=== PATIENT | female | born 1995 | race Caucasian/White ===

== ENCOUNTER 2017-01-03 03:46 | Inpatient (IN) | payer BC, MEDICAID ==
[2017-01-03] MEDS ORDERED: Lactated Ringers 1,000 ML IV SCH (04:00)
[2017-01-03] MEDS ORDERED: Ropivacaine 100 ML ONE (04:55)
[2017-01-03] MEDS ORDERED: Ondansetron 4 MG Tab.DIS PO PRN (05:14)
[2017-01-03] MEDS ORDERED: Sodium Chloride 0.9% 10 ML Syringe FLUSH PRN (05:14)
[2017-01-03] MEDS ORDERED: Acetaminophen 325 MG Tab PO PRN (05:14)
[2017-01-03] MEDS ORDERED: ePHEDrine 50 MG/ML SDV ONE (05:16)
--- NOTE | 2017-01-03 05:24 | PCM.LDHP ---
L&D History of Present Illness - General Date of Service: 01/03/17 (labor) Admit Problem/Dx: Patient Status Order with Admit Dx/Problem 01/03/17 05:14 Patient Status [ADT] Routine Admission Diagnosis/Problem Admission Diagnosis/Problem Source of Information: Patient History Limitations: Reports: No Limitations - History of Present Illness Introduction:: This 21 year old G1 at 40 2/7 presented in active labor. /. Requested epidural for pain. Adequate care. No problems. Labs: ABO A pos, HIV neg, Rubella immune, GBS neg. Timing/Duration: Reports: minutes: (3) Location, : Reports: Abdomen Quality: Reports: Sharp Severity: Moderate Improves with: Reports: None Worsens with: Reports: None - Related Data Allergies/Adverse Reactions: Allergies Allergy/AdvReac Type Severity Reaction Status Date / Time No Known Allergies Allergy Verified 02/16/16 22:12 Home Medications: Home Meds FLUoxetine [PROzac] 10 mg PO DAILY 12/28/13 [History] Past Medical History - Past Health History Medical/Surgical History: Denies Medical/Surgical History GOLD ASSAYER History: Reports: : 1 Para: 0 LMP (Approximate): (TONYA 01/01/17) Psychiatric History: Reports: Anxiety, Depression Social & Family History - Family History Family Medical History: Noncontributory - Tobacco Use Smoking Status *Q: Former Smoker Years of Tobacco use: 2 Packs/Tins Daily: 0.3 Used Tobacco, but Quit: Yes Month Tobacco Last Used: jun 2016 Second Hand Smoke Exposure: Yes - Caffeine Use Caffeine Use: Reports: None - Alcohol Use Days Per Week of Alcohol Use: 0 - Recreational Drug Use Recreational Drug Use: Yes Drug Use in Last 12 Months: Yes Recreational Drug Type: Reports: Marijuana/Hashish H&P Review of Systems - Review of Systems: Review Of Systems: See Below General: Reports: No Symptoms HEENT: Reports: No Symptoms Pulmonary: Reports: No Symptoms Cardiovascular: Reports: No Symptoms Gastrointestinal: Reports: No Symptoms Genitourinary: Reports: No Symptoms Musculoskeletal: Reports: No Symptoms Skin: Reports: No Symptoms Psychiatric: Reports: No Symptoms Neurological: Reports: No Symptoms Hematologic/Lymphatic: Reports: No Symptoms Immunologic: Reports: No Symptoms L&D Exam - Exam Exam: See Below - Vital Signs Vital Signs: Last Vital Signs Temp 97.8 F 01/03/17 05:16 Pulse 75 01/03/17 05:16 Resp 18 01/03/17 05:16 BP 126/79 01/03/17 05:16 Pulse Ox 98 01/03/17 03:46 Weight: 166 lb - OB Specific Contraction Duration (sec): 40-60 Contraction Frequency (min): 2 Contraction Intensity: Mild to Moderate Movement: Active Heart Tones: Present Heart Rate (FHR) Variability: Moderate (6-25 bmp) Presentation: Vertex Estimated Weight: 7-8 pounds - Richard Score Richard Score Cervix Position: Midposition Richard Score Consistency: Soft Richard Score Effacement: >80% Richard Score Dilation: 3-4 cm Richard Score Infant's Station: -1 ,0 Richard Score Total: 10 - Exam General: Alert, Oriented HEENT: PERRLA, Conjunctiva Clear, EACs Clear, EOMI, Hearing Intact, Mucosa Moist & [place], Nares Patent, Normal Nasal Septum, Posterior Pharynx Clear, Pupils Equal, Pupils Reactive Neck: Supple, Trachea Midline Lungs: Clear to Auscultation, Normal Respiratory Effort Cardiovascular: Regular Rate, Regular Rhythm Abdomen: Normal Bowel Sounds, Soft Rectal Exam: Normal Exam Genitourinary: Normal external exam, Enlarged uterus Back Exam: Normal Inspection, Full Range of Motion Extremities: Normal Inspection Skin: Warm, Dry, Intact Neurological: Cranial Nerves Intact, Reflexes Equal Bilateral Psychiatric: Alert, Normal Affect, Normal Mood - Patient Data Lab Results Last 24 hrs: Laboratory Results - last 24 hr 01/03/17 Range/Units 04:00 WBC 12.5 H (4.5-11.0) K/uL RBC 4.26 (3.30-5.50) M/uL Hgb 13.6 (12.0-15.0) g/dL Hct 38.5 (36.0-48.0) % MCV 90 (80-98) fL MCH 32 H (27-31) pg MCHC 35 (32-36) % Plt Count 260 (150-400) K/uL Neut % (Auto) 61 (36-66) % Lymph % (Auto) 29 (24-44) % [place] % (Auto) 9 H (2-6) % Eos % (Auto) 1 L (2-4) % Baso % (Auto) 1 (0-1) % Result Diagrams: 01/03/17 04:00 - Problem List (1) SNOMED Code(s): 23457611 ICD Code: Z34.90 - ENCNTR FOR SUPRVSN OF NORMAL , UNSP, UNSP TRIMESTER Status: Acute Current Visit: Yes Qualifiers: Weeks of gestation: 40 weeks Qualified Code(s): Z3A.40 - 40 weeks gestation of (2) Active labor at term SNOMED Code(s): 16717958 ICD Code: [id number] - Status: Acute Current Visit: Yes Problem List Initiated/Reviewed/Updated: Yes Orders Last 24hrs: Active Orders 24 hr Category Date Time Status Patient Status [ADT] Routine ADT 01/03/17 05:14 Ordered Antiembolic Devices [RC] .Routine Care 01/03/17 05:16 Ordered Communication Order [RC] ASDIRECTED Care 01/03/17 05:14 Ordered Heart Tones [RC] PER UNIT ROUTINE Care 01/03/17 05:14 Ordered Local Anesthetic Infusion Pump [RC] ASDIRECTED Care 01/03/17 03:54 Active May Shower [RC] ASDIRECTED Care 01/03/17 05:14 Ordered Notify Provider Vital Signs [RC] PRN Care 01/03/17 05:14 Ordered Notify Provider [RC] PRN Care 01/03/17 05:14 Ordered OB Check [OM.PC] Click to Edit Care 01/03/17 03:52 Ordered PCEA Epidural [RC] ASDIRECTED Care 01/03/17 03:54 Active Up ad Laura [RC] ASDIRECTED Care 01/03/17 05:14 Ordered VTE/DVT Education [RC] Click to Edit Care 01/03/17 05:16 Ordered Vital Signs [RC] PER UNIT ROUTINE Care 01/03/17 05:14 Ordered Clear Liquid Diet [DIET] Diet 01/03/17 Breakfast Ordered DRUG SCREEN, URINE [URCHEM] Routine Lab 01/03/17 05:10 Ordered UA W/MICROSCOPIC [URIN] Routine Lab 01/03/17 05:10 Ordered Acetaminophen [Tylenol] Med 01/03/17 05:14 Ordered 650 mg PO Q4H PRN Lactated Ringers [Ringers, Lactated] 1,000 ml Med 01/03/17 04:00 Active IV BOLUS Ondansetron [Zofran ODT] Med 01/03/17 05:14 Ordered 4 mg PO Q4H PRN Oxytocin/Normal Saline [Pitocin in NS 20 Units/1,000 ML Med 01/03/17 05:30 Ordered ] 1,000 ml IV TITRATE Sodium Chloride 0.9% [Saline Flush] Med 01/03/17 05:14 Ordered 10 ml FLUSH ASDIRECTED PRN DVT/VTE Prophylaxis Reflex [OM.PC] Routine Oth 01/03/17 05:14 Ordered Epidural Catheter Management [OM.PC] Routine Oth 01/03/17 03:54 Ordered Saline Lock Insert [OM.PC] Routine Oth 01/03/17 05:14 Ordered Resuscitation Status Routine Resus Stat 01/03/17 05:14 Ordered Medication Orders Acetaminophen (Tylenol) 650 mg PO Q4H PRN PRN Reason: Pain (Mild 1-3) and fever Lactated Ringer's (Ringers, Lactated) 1,000 mls @ 999 mls/hr IV BOLUS TOYA Oxytocin/Sodium Chloride (Pitocin In Ns 20 Units/1,000 Ml) 1,000 mls @ 6 mls/ hr IV TITRATE TOYA; 2 MUNITS/MIN PRN Reason: Protocol Ondansetron HCl (Zofran Odt) 4 mg PO Q4H PRN PRN Reason: Nausea/Vomiting Sodium Chloride (Saline Flush) 10 ml FLUSH ASDIRECTED PRN PRN Reason: Keep Vein Open Assessment/Plan Comment:: 01/03/17 40 2/7 G1, active labor epidural in palce and comfortable Planning for vaginal delivery
--- NOTE | 2017-01-03 07:03 | PCM.PNLD ---
Labor Progress Note - VS & Meds Vital Signs: Last Vital Signs Temp 97.8 F 01/03/17 05:16 Pulse 73 01/03/17 06:36 Resp 18 01/03/17 05:50 BP 115/75 01/03/17 05:50 Pulse Ox 95 01/03/17 05:50 Active Medications: Current Medications Acetaminophen (Tylenol) 650 mg PO Q4H PRN PRN Reason: Pain (Mild 1-3) and fever Lactated Ringer's (Ringers, Lactated) 1,000 mls @ 999 mls/hr IV BOLUS TOYA Oxytocin/Sodium Chloride (Pitocin In Ns 20 Units/1,000 Ml) 20 unit in 1,000 mls @ 6 mls/hr IV TITRATE TOYA; 2 MUNITS/MIN PRN Reason: Protocol Ondansetron HCl (Zofran Odt) 4 mg PO Q4H PRN PRN Reason: Nausea/Vomiting Sodium Chloride (Saline Flush) 10 ml FLUSH ASDIRECTED PRN PRN Reason: Keep Vein Open Discontinued Medications Ephedrine Sulfate (Ephedrine Sulfate) Confirm Administered Dose 50 mg .ROUTE .STK-MED ONE Stop: 01/03/17 05:17 Ropivacaine (Naropin 0.2%) Confirm Administered Dose 100 mls @ as directed .ROUTE .STK-MED ONE Stop: 01/03/17 04:56 - Uterine Contractions Uterine Monitoring Mode: External [place] Contraction Frequency (min): 1.5-2 Contraction Duration (sec): 60 Contraction Intensity: Mild to Moderate Uterine Resting Tone: Soft - Monitoring Monitor Mode: Doppler/Auscultation Heart Rate (FHR) Baseline: 145 Heart Rate (FHR) Variability: Moderate (6-25 bmp) Accelerations: Present, 15x15 Decelerations: None Strip Review: Category I - Vaginal Exam Dilation (cm): 6 Effacement (Percent): 100 Station: 0 Cervical Position: Anterior Sterile Vaginal Exam Performed By: Nohemy Gonzalez Vaginal Exam Comment: AROM large amount clear fluids - Labor Progress (Free Text) Labor Progress: epidural working well bloody show progress and now ruptured planning vaginal delivery, will let her labor down
[2017-01-03] MEDS ORDERED: Ropivacaine 100 ML EPIDUR SCH (08:21)
[2017-01-03] MEDS ORDERED: ePHEDrine 50 MG/ML SDV IVPUSH PRN (08:21)
[2017-01-03] MEDS ORDERED: Naloxone 0.4 MG/ML SDV IVPUSH PRN (08:21)
[2017-01-03] MEDS ORDERED: diphenhydrAMINE 50 MG/ML SDV IVPUSH PRN (08:21)
[2017-01-03] MEDS ORDERED: Mineral Oil 10 ML Bottle ONE (08:38)
[2017-01-03] MEDS ORDERED: Lanolin 100% Cream 40 GM Tube TOP PRN (09:48)
[2017-01-03] MEDS ORDERED: Acetaminophen/Codeine 300-30 MG Tab PO PRN (09:48)
[2017-01-03] MEDS ORDERED: Acetaminophen 325 MG Tab, 50 Tab Bulk Bottle PO PRN (09:48)
[2017-01-03] MEDS ORDERED: Witch Hazel Medicated Pads 100/Jar TOP PRN (09:48)
[2017-01-03] MEDS ORDERED: Ibuprofen 200 MG Tab, 24 Tab Bulk Bottle PO PRN (09:48)
[2017-01-03] MEDS ORDERED: Benzocaine 20% Top Spray 56 GM Bottle TOP PRN (09:48)
[2017-01-03] MEDS ORDERED: Ibuprofen 600 MG Tab PO PRN (09:48)
--- NOTE | 2017-01-03 10:04 | PCM.DEL ---
L & D Note - General Info Date of Service: 01/03/17 (delivery) Mother's Due Date: 01/01/17 - Delivery Note Labor: spontaneous Delivery Outcome: Livebirth Infant Delivery Mode: Spontaneous Presentation: Vertex Nuchal Cord: None Anesthesia Type: Epidural Amniotic Fluid Description: Meconium stained Episiotomy Type: None Laceration: 2nd degree, perineal, vaginal Suture type: chromic Suture size: 3-0 Placenta: intact, spontaneous Cord: 2 vessels, 3 vessels Estimated Blood Loss: 300 Resuscitation Needed: No : Bulb Syringe, Stimulated, Warmed, Lander Used, Warmer Used Provider: Nohemy Gonzalez Score 1 min: 8 Score 5 min: 9 Score 10 min: 9 Second Stage Interventions: Reports: Second Nurse Reviewed Contraction Pattern, Laboring Down, Pushing Effectively, Pushing, Left Side, Pushing, Right Side, Pushing, Squat Bar Pulling on Device Delivery Comments (Free Text/Narrative):: 01/03/17 This 21 year old G1 now P1 who is 40 2/7 weeks gestation delivered via in [facility] with a right hand presentation by her face. Mother pused effectively and baby delivered without nuchal cord she was placed on mother's abdomen where she was dried and stimulated. She was taken to the warmer for further assessment. transitioned well, was weighted and returned to mother. Her was bulb suctioned, female, weight 7-15, Apgars 8,9,9. Three vessel cord. Placenta was expressed spontaneously intact via active active management of the third stage. Mother had a right low vaginal wall tear and a perineal tear. Bother were repaired with 3-0 vicryl. Locking stitches were used in the vaginal, a few deeps to the perineum and then perineum was closed with interrupted stitches. EBL 300cc Mother and baby to post and nursery in stable condition. Baby to breast within the first hour. first stage [id number] Second stage [id number] Third stage 1515-3176 - General Info Date of Service: 01/03/17 Admission Dx/Problem (Free Text): Patient Status Order with Admit Dx/Problem 01/03/17 05:14 Patient Status [ADT] Routine Admission Diagnosis/Problem Admission Diagnosis/Problem Functional Status: Reports: pain controlled - Review of Systems General: Reports: No Symptoms HEENT: Reports: no symptoms Pulmonary: Reports: no symptoms Cardiovascular: Reports: No Symptoms Gastrointestinal: Reports: No symptoms Genitourinary: Reports: no symptoms Musculoskeletal: Reports: no symptoms Skin: Reports: no symptoms Neurological: Reports: No Symptoms Psychiatric: Reports: no symptoms - Patient Data Vitals - most recent: Last Vital Signs Temp 97.8 F 01/03/17 05:16 Pulse 73 01/03/17 06:36 Resp 18 01/03/17 05:50 BP 115/75 01/03/17 05:50 Pulse Ox 95 01/03/17 05:50 Weight - most recent: 166 lb Lab Results last 24 hrs: Laboratory Results - last 24 hr 01/03/17 01/03/17 01/03/17 Range/Units 04:00 05:10 05:10 WBC 12.5 H (4.5-11.0) K/uL RBC 4.26 (3.30-5.50) M/uL Hgb 13.6 (12.0-15.0) g/dL Hct 38.5 (36.0-48.0) % MCV 90 (80-98) fL MCH 32 H (27-31) pg MCHC 35 (32-36) % Plt Count 260 (150-400) K/uL Neut % (Auto) 61 (36-66) % Lymph % (Auto) 29 (24-44) % [place] % (Auto) 9 H (2-6) % Eos % (Auto) 1 L (2-4) % Baso % (Auto) 1 (0-1) % Urine Color Red Urine Appearance Cloudy Urine pH 8.0 (4.5-8.0) Ur Specific [place] 1.020 (1.008-1.030) Urine Protein 30 H (NEGATIVE) mg/dL Urine Glucose (UA) Normal (NEGATIVE) mg/dL Urine Ketones 15 H (NEGATIVE) mg/dL Urine Occult Blood Large (NEGATIVE) Urine Nitrite Negative (NEGATIVE) Urine Bilirubin Negative (NEGATIVE) Urine Urobilinogen Normal (NORMAL) mg/dL Ur Leukocyte Esterase Large (NEGATIVE) Urine RBC >100 H (0-5) Urine WBC 0-5 (0-5) Ur Epithelial Cells Moderate Amorphous Sediment Many Urine Bacteria Many Urine Mucus Not seen Urine Opiates Screen Negative (NEGATIVE) Ur Oxycodone Screen Negative (NEGATIVE) Urine Methadone Screen Negative (NEGATIVE) Ur Propoxyphene Screen Negative (NEGATIVE) Ur Barbiturates Screen Negative (NEGATIVE) Ur Tricyclics Screen Negative (NEGATIVE) Ur Phencyclidine Scrn Negative (NEGATIVE) Ur Amphetamine Screen Negative (NEGATIVE) U Methamphetamines Scrn Negative (NEGATIVE) Urine MDMA Screen Negative (NEGATIVE) U Benzodiazepines Scrn Negative (NEGATIVE) U Cocaine Metab Screen Negative (NEGATIVE) U Marijuana (THC) Screen Negative (NEGATIVE) Med Orders - Current: Current Medications Acetaminophen (Tylenol) 650 mg PO Q4H PRN PRN Reason: Pain (Mild 1-3) and fever Diphenhydramine HCl (Benadryl) 25 mg IVPUSH Q6H PRN PRN Reason: ITCHING Ephedrine Sulfate (Ephedrine Sulfate) 5 - 10 mg IVPUSH ASDIRECTED PRN PRN Reason: IF SYSTOLIC BP LESS THAN 100 Lactated Ringer's (Ringers, Lactated) 1,000 mls @ 999 mls/hr IV BOLUS TOYA Oxytocin/Sodium Chloride (Pitocin In Ns 20 Units/1,000 Ml) 20 unit in 1,000 mls @ 6 mls/hr IV TITRATE TOYA; 2 MUNITS/MIN PRN Reason: Protocol Ropivacaine (Naropin 0.2%) 100 mls @ 0 mls/hr EPIDUR ASDIRECTED TOYA; Titrate PRN Reason: Protocol Naloxone HCl (Narcan) 0.1 mg IVPUSH Q5M PRN PRN Reason: IF RESP RATE LESS THAN 6 Ondansetron HCl (Zofran Odt) 4 mg PO Q4H PRN PRN Reason: Nausea/Vomiting Sodium Chloride (Saline Flush) 10 ml FLUSH ASDIRECTED PRN PRN Reason: Keep Vein Open Discontinued Medications Ephedrine Sulfate (Ephedrine Sulfate) Confirm Administered Dose 50 mg .ROUTE .STK-MED ONE Stop: 01/03/17 05:17 Ropivacaine (Naropin 0.2%) Confirm Administered Dose 100 mls @ as directed .ROUTE .STK-MED ONE Stop: 01/03/17 04:56 Mineral Oil (Muri-Lube) Confirm Administered Dose 10 ml .ROUTE .STK-MED ONE Stop: 01/03/17 08:39 - Exam General: alert, oriented HEENT: Pupils equal, Pupils reactive, EOMI, Mucous membr. moist/pink Neck: supple Lungs: Clear to auscultation, Normal respiratory effort Cardiovascular: Regular Rate, Regular Rhythm Abdomen: bowel sounds present, soft, no tenderness, no distension (Female) Exam: Normal External Exam, Cervical Dilatation, Enlarged Uterus, Vaginal Bleeding Back Exam: Normal Inspection, Full Range of Motion Extremities: no edema Skin: warm, dry, intact Neurological: no new focal deficit Psy/Mental Status: alert, normal affect, normal mood - Problem List & Annotations (1) SNOMED Code(s): 48259250 Code(s): Z34.90 - ENCNTR FOR SUPRVSN OF NORMAL , UNSP, UNSP TRIMESTER Status: Acute Current Visit: Yes Qualifiers: Weeks of gestation: 40 weeks Qualified Code(s): Z3A.40 - 40 weeks gestation of (2) Active labor at term SNOMED Code(s): 26896931 Code(s): OWI8672 - Status: Acute Current Visit: Yes (3) Obstetrical perineal laceration with delivery SNOMED Code(s): 741875002 Code(s): O70.9 - PERINEAL LACERATION DURING DELIVERY, UNSPECIFIED Status: Acute Current Visit: Yes (4) Obstetrical laceration, second degree SNOMED Code(s): 4774632 Code(s): O70.1 - SECOND DEGREE PERINEAL LACERATION DURING DELIVERY Status: Acute Current Visit: Yes (5) Vaginal delivery SNOMED Code(s): 320428626 Code(s): O80 - ENCOUNTER FOR FULL-TERM UNCOMPLICATED DELIVERY Status: Acute Current Visit: Yes - Problem List Review Problem List Initiated/Reviewed/Updated: Yes - My Orders Last 24 Hours: My Active Orders 01/03/17 03:52 OB Check [OM.PC] Click to Edit 01/03/17 03:54 Local Anesthetic Infusion Pump [RC] ASDIRECTED Epidural Catheter Management [OM.PC] Routine 01/03/17 04:00 Lactated Ringers [Ringers, Lactated] 1,000 ml IV BOLUS 01/03/17 05:14 Communication Order [RC] ASDIRECTED May Shower [RC] ASDIRECTED Notify Provider Vital Signs [RC] PRN Notify Provider [RC] PRN Up ad Laura [RC] ASDIRECTED Vital Signs [RC] PER UNIT ROUTINE Acetaminophen [Tylenol] 650 mg PO Q4H PRN Ondansetron [Zofran ODT] 4 mg PO Q4H PRN Sodium Chloride 0.9% [Saline Flush] 10 ml FLUSH ASDIRECTED PRN DVT/VTE Prophylaxis Reflex [OM.PC] Routine Saline Lock Insert [OM.PC] Routine Resuscitation Status Routine 01/03/17 05:16 Antiembolic Devices [RC] .Routine VTE/DVT Education [RC] Click to Edit 01/03/17 05:30 Oxytocin/Normal Saline [Pitocin in NS 20 Units/1,000 ML] 20 unit in 1,000 ml IV TITRATE 01/03/17 08:21 Naloxone [Narcan] 0.1 mg IVPUSH Q5M PRN Ropivacaine [Naropin 0.2%] 100 ml EPIDUR ASDIRECTED diphenhydrAMINE [Benadryl] 25 mg IVPUSH Q6H PRN ePHEDrine [ePHEDrine Sulfate] 5 - 10 mg IVPUSH ASDIRECTED PRN 01/03/17 09:48 Patient Status [ADT] Routine Vital Signs [RC] PFP Consult to Hand Booked Folder And Stitcher [CONS] Routine Acetaminophen [Tylenol Bulk Bottle] 325 mg PO Q4H PRN Acetaminophen/Codeine [Tylenol with Codeine No.3 300MG/30MG] 1 tab PO Q4H PRN Benzocaine [Ooju-X-Cmrwcyc 20% [place]] See Dose Instructions TOP Q4H PRN Ibuprofen [Motrin Bulk Bottle] 600 mg PO Q6H PRN Ibuprofen [Motrin] 600 mg PO Q6H PRN Lanolin [Lansinoh HPA] 1 gm TOP ASDIRECTED PRN Witch Ariana [Tucks] 1 pad TOP ASDIRECTED PRN Assess Lochia [WOMSER] Per Unit Routine Assess Uterine Involution [WOMSER] Per Unit Routine 01/03/17 09:49 Ice Therapy [OM.PC] Per Unit Routine Perineal Care [OM.PC] Per Unit Routine Peripheral IV Discontinue [OM.PC] Routine Sitz Bath [OM.PC] Per Unit Routine 01/03/17 10:00 Docusate Sodium [Colace] 100 mg PO BID 01/03/17 Breakfast Clear Liquid Diet [DIET] 01/03/17 Lunch Regular Diet [DIET] 01/04/17 05:11 CBC WITH AUTO DIFF [HEME] AM - Assessment Assessment:: 01/03/17 21 yr old g1 now p1 40 2/7 with second degree tears, repaired, no complications - Plan Plan:: 01/03/17 40 2/7 G1, active labor epidural in palce and comfortable Planning for vaginal delivery 01/03/17 routine cares rodolfo medina later today KIERRA poole Support and help with 24-48 hour stay
[2017-01-03] MEDS: Docusate Sodium 100 MG Cap PO SCH (12:15)
--- NOTE | 2017-01-03 13:34 | ANES ---
DATE OF SERVICE: 01/03/2017 INDICATION: Norma is a 21-year-old female, a patient of Nohemy Gonzalez CNM, OB Unit. I was requested to assess the patient for labor epidural placement. Upon arrival, I reviewed lab work and patient history and found no contraindication to epidural placement. Discussed with her risks and benefits of the procedure as well as the procedure in depth. She was okay to proceeding and consent was received. DESCRIPTION OF PROCEDURE: I had her seated at the edge of the bed. Betadine prep x3 to lumbar region. Sterile drape was placed, 1% lidocaine skin wheal as well as deep at the L3- L4 region. 17-gauge Tuohy was placed to loss of resistance with ease. Negative CSF, negative heme, negative paresthesia. I placed a catheter to 13 cm. The needle was removed. Catheter was secured and a test dose of 3 mL of 1.5% lidocaine with 1:200,000 epinephrine was given, 0- sequelae. At that time, I bolused her with 12 mL of 0.2% ropivacaine and began an infusion of that same 0.2% ropivacaine at 12 mL an hour that was after the patient was placed in the supine position. Catheter was secured prior to that as well. She tolerated the procedure quite well. Please refer to Nohemy's note for diagnosis and nurse's notes for vital signs and neuro status. I reported the procedure off to the nurse as well as the patient. Again, she tolerated the procedure quite well. Miller Hernandez CRNA /[id number]
[2017-01-04] MEDS: Docusate Sodium 100 MG Cap PO SCH ×3 (01:44→20:05)
--- NOTE | 2017-01-04 10:02 | PCM.PNPP ---
- General Info Date of Service: 01/04/17 (PPD 1) Admission Dx/Problem (Free Text): Patient Status Order with Admit Dx/Problem 01/03/17 05:14 Patient Status [ADT] Routine Admission Diagnosis/Problem Admission Diagnosis/Problem Functional Status: Reports: pain controlled - Review of Systems General: Reports: No Symptoms HEENT: Reports: no symptoms Pulmonary: Reports: no symptoms Cardiovascular: Reports: No Symptoms Gastrointestinal: Reports: No symptoms Genitourinary: Reports: no symptoms Musculoskeletal: Reports: no symptoms Skin: Reports: no symptoms Neurological: Reports: No Symptoms Psychiatric: Reports: no symptoms - General Info Date of Service: 01/04/17 - Patient Data Vital Signs - most recent: Last Vital Signs Temp 97.8 F 01/04/17 07:50 Pulse 76 01/04/17 07:50 Resp 14 01/04/17 07:50 BP 103/69 01/04/17 07:50 Pulse Ox 97 01/04/17 07:50 Weight - most recent: 166 lb I&O - last 24 hours: Intake & Output 01/03/17 01/04/17 01/04/17 22:59 06:59 14:59 Intake Total 400 Balance 400 Lab Results - last 24 hrs: Laboratory Results - last 24 hr 01/04/17 Range/Units 06:13 WBC 12.6 H (4.5-11.0) K/uL RBC 3.52 (3.30-5.50) M/uL Hgb 11.2 L D (12.0-15.0) g/dL Hct 32.9 L (36.0-48.0) % MCV 94 (80-98) fL MCH 32 H (27-31) pg MCHC 34 (32-36) % Plt Count 206 (150-400) K/uL Neut % (Auto) 66 (36-66) % Lymph % (Auto) 25 (24-44) % Forest % (Auto) 8 H (2-6) % Eos % (Auto) 1 L (2-4) % Baso % (Auto) 0 (0-1) % Med Orders - Current: Current Medications Acetaminophen (Tylenol Bulk Bottle) 0 mg PO Q4H PRN PRN Reason: Pain Last Admin: 01/03/17 12:10 Dose: 1 bottle Acetaminophen/Codeine Phosphate (Tylenol With Codeine No.3 300mg/30mg) 1 tab PO Q4H PRN PRN Reason: Pain (moderate 4-6) Benzocaine (Qqov-K-Jjocxmq 20% Fletcher) 0 gm TOP Q4H PRN PRN Reason: Perineal Comfort Measure Last Admin: 01/03/17 12:10 Dose: 1 spray Docusate Sodium (Colace) 100 mg PO BID TOYA Last Admin: 01/04/17 01:44 Dose: 100 mg Emollient Ointment (Lansinoh Hpa) 0 gm TOP ASDIRECTED PRN PRN Reason: Sore Nipples Last Admin: 01/03/17 12:11 Dose: 1 applic Lactated Ringer's (Ringers, Lactated) 1,000 mls @ 999 mls/hr IV BOLUS TOYA Oxytocin/Sodium Chloride (Pitocin In Ns 20 Units/1,000 Ml) 20 unit in 1,000 mls @ 6 mls/hr IV TITRATE TOYA; 2 MUNITS/MIN PRN Reason: Protocol Last Titration: 01/03/17 10:10 Dose: 125 mls/hr Ibuprofen (Motrin Bulk Bottle) 600 mg PO Q6H PRN PRN Reason: Pain Last Admin: 01/03/17 12:10 Dose: 1 bottle Ondansetron HCl (Zofran Odt) 4 mg PO Q4H PRN PRN Reason: Nausea/Vomiting Sodium Chloride (Saline Flush) 10 ml FLUSH ASDIRECTED PRN PRN Reason: Keep Vein Open Witch Ariana (Tucks) 1 pad TOP ASDIRECTED PRN PRN Reason: Hemorrhoids Last Admin: 01/03/17 12:10 Dose: 1 pad Discontinued Medications Acetaminophen (Tylenol) 650 mg PO Q4H PRN PRN Reason: Pain (Mild 1-3) and fever Diphenhydramine HCl (Benadryl) 25 mg IVPUSH Q6H PRN PRN Reason: ITCHING Ephedrine Sulfate (Ephedrine Sulfate) Confirm Administered Dose 50 mg .ROUTE .STK-MED ONE Stop: 01/03/17 05:17 Last Admin: 01/03/17 12:05 Dose: Not Given Ephedrine Sulfate (Ephedrine Sulfate) 5 - 10 mg IVPUSH ASDIRECTED PRN PRN Reason: IF SYSTOLIC BP LESS THAN 100 Ropivacaine (Naropin 0.2%) Confirm Administered Dose 100 mls @ as directed .ROUTE .STK-MED ONE Stop: 01/03/17 04:56 Ropivacaine (Naropin 0.2%) 100 mls @ 0 mls/hr EPIDUR ASDIRECTED TOYA; Titrate PRN Reason: Protocol Mineral Oil (Muri-Lube) Confirm Administered Dose 10 ml .ROUTE .STK-MED ONE Stop: 01/03/17 08:39 Last Admin: 01/03/17 12:05 Dose: Not Given Naloxone HCl (Narcan) 0.1 mg IVPUSH Q5M PRN PRN Reason: IF RESP RATE LESS THAN 6 - Infant Interaction Disposition, : [place] in Room with Family Interaction: Holding Infant Infant Feeding: Breastfed ; Nursed Well, Encouraged to Breastfeed Support Person: Significant Other - Recovery Exam Fundal Tone: Firm Fundal Level: At Umbilicus Fundal Placement: Left Lochia Amount: Small Lochia Color: Rubra/Red Perineum Description: Intact, Minimal Bruising/Swelling, Hemorrhoids Other Perinuem Description: Digital exam, no hematomas and repair looks great Episiotomy/Laceration: Approximated Bladder Status: Voiding Urinary Elimination: Voided - Exam General: alert, oriented HEENT: Pupils equal Neck: supple Lungs: Clear to auscultation, Normal respiratory effort Cardiovascular: Regular Rate, Regular Rhythm Abdomen: bowel sounds present, soft, no tenderness, no distension Extremities: no edema Skin: warm, dry, intact Wound/Incisions: healing well Neurological: no new focal deficit Psy/Mental Status: alert, normal affect, normal mood - Problem List & Annotations (1) SNOMED Code(s): 89041335 Code(s): Z34.90 - ENCNTR FOR SUPRVSN OF NORMAL , UNSP, UNSP TRIMESTER Status: Acute Current Visit: Yes Qualifiers: Weeks of gestation: 40 weeks Qualified Code(s): Z3A.40 - 40 weeks gestation of (2) Active labor at term SNOMED Code(s): 40075581 Code(s): PEB3076 - Status: Acute Current Visit: Yes (3) Obstetrical perineal laceration with delivery SNOMED Code(s): 960941244 Code(s): O70.9 - PERINEAL LACERATION DURING DELIVERY, UNSPECIFIED Status: Acute Current Visit: Yes (4) Obstetrical laceration, second degree SNOMED Code(s): 0300487 Code(s): O70.1 - SECOND DEGREE PERINEAL LACERATION DURING DELIVERY Status: Acute Current Visit: Yes (5) Vaginal delivery SNOMED Code(s): 180714044 Code(s): O80 - ENCOUNTER FOR FULL-TERM UNCOMPLICATED DELIVERY Status: Acute Current Visit: Yes - Problem List Review Problem List Initiated/Reviewed/Updated: Yes - My Orders Last 24 Hours: My Active Orders 01/03/17 09:48 Patient Status [ADT] Routine Consult to [employer] [CONS] Routine Acetaminophen [Tylenol Bulk Bottle] 0 mg PO Q4H PRN Acetaminophen/Codeine [Tylenol with Codeine No.3 300MG/30MG] 1 tab PO Q4H PRN Benzocaine [Xcfy-O-Wmowjls 20% Fletcher] See Dose Instructions TOP Q4H PRN Ibuprofen [Motrin Bulk Bottle] 600 mg PO Q6H PRN Lanolin [Lansinoh HPA] 0 gm TOP ASDIRECTED PRN Witch Ariana [Tucks] 1 pad TOP ASDIRECTED PRN Assess Lochia [WOMSER] Per Unit Routine Assess Uterine Involution [WOMSER] Per Unit Routine 01/03/17 09:49 Ice Therapy [OM.PC] Per Unit Routine Perineal Care [OM.PC] Per Unit Routine Peripheral IV Discontinue [OM.PC] Routine Sitz Bath [OM.PC] Per Unit Routine 01/03/17 10:00 Docusate Sodium [Colace] 100 mg PO BID 01/03/17 Lunch Regular Diet [DIET] - Assessment Assessment:: 01/03/17 21 yr old g1 now p1 40 2/7 with second degree tears, repaired, no complications 01/04/17 Norma is doing well Is motivated to breastfeed Has been up and about doing self cares asks staff good questions HGB 11.2 repair tender, digital exam negative for hematoma , the swelling is down tissues intact. Hemorrhoids slightly swollen, but better than yesterday - Plan Plan:: 01/03/17 40 2/7 G1, active labor epidural in palce and comfortable Planning for vaginal delivery 01/03/17 routine cares sitz bath later today [facility] Support and help with 24-48 hour stay 01/04/17 Routine cares Home tomorrow Staff to work on education sitz bath today
[2017-01-05 07:59] VITALS: BP 106/71
--- NOTE | 2017-01-05 08:37 | PCM.PNPP ---
- General Info Date of Service: 01/05/17 Admission Dx/Problem (Free Text): Patient Status Order with Admit Dx/Problem 01/03/17 05:14 Patient Status [ADT] Routine Admission Diagnosis/Problem Admission Diagnosis/Problem Functional Status: Reports: pain controlled - Review of Systems General: Reports: No Symptoms HEENT: Reports: no symptoms Pulmonary: Reports: no symptoms Cardiovascular: Reports: No Symptoms Gastrointestinal: Reports: No symptoms Genitourinary: Reports: no symptoms Musculoskeletal: Reports: no symptoms Skin: Reports: no symptoms Neurological: Reports: No Symptoms Psychiatric: Reports: no symptoms - General Info Date of Service: 01/05/17 - Patient Data Vital Signs - most recent: Last Vital Signs Temp 36.6 C 01/05/17 07:57 Pulse 79 01/05/17 07:57 Resp 16 01/05/17 07:57 BP 106/71 01/05/17 07:57 Pulse Ox 98 01/05/17 07:57 Weight - most recent: 75.296 kg I&O - last 24 hours: Intake & Output 01/04/17 01/05/17 01/05/17 22:59 06:59 14:59 Intake Total 1200 Balance 1200 Med Orders - Current: Current Medications Acetaminophen (Tylenol Bulk Bottle) 0 mg PO Q4H PRN PRN Reason: Pain Last Admin: 01/03/17 12:10 Dose: 1 bottle Acetaminophen/Codeine Phosphate (Tylenol With Codeine No.3 300mg/30mg) 1 tab PO Q4H PRN PRN Reason: Pain (moderate 4-6) Benzocaine (Rrlz-G-Awhuewa 20% [place]) 0 gm TOP Q4H PRN PRN Reason: Perineal Comfort Measure Last Admin: 01/03/17 12:10 Dose: 1 spray Docusate Sodium (Colace) 100 mg PO BID TOYA Last Admin: 01/04/17 20:05 Dose: 100 mg Emollient Ointment (Lansinoh Hpa) 0 gm TOP ASDIRECTED PRN PRN Reason: Sore Nipples Last Admin: 01/03/17 12:11 Dose: 1 applic Lactated Ringer's (Ringers, Lactated) 1,000 mls @ 999 mls/hr IV [facility] Oxytocin/Sodium Chloride (Pitocin In Ns 20 Units/1,000 Ml) 20 unit in 1,000 mls @ 6 mls/hr IV TITRATE TOYA; 2 MUNITS/MIN PRN Reason: Protocol Last Titration: 01/03/17 10:10 Dose: 125 mls/hr Ibuprofen (Motrin Bulk Bottle) 600 mg PO Q6H PRN PRN Reason: Pain Last Admin: 01/03/17 12:10 Dose: 1 bottle Ondansetron HCl (Zofran Odt) 4 mg PO Q4H PRN PRN Reason: Nausea/Vomiting Sodium Chloride (Saline Flush) 10 ml FLUSH ASDIRECTED PRN PRN Reason: Keep Vein Open Witch Ariana (Tucks) 1 pad TOP ASDIRECTED PRN PRN Reason: Hemorrhoids Last Admin: 01/03/17 12:10 Dose: 1 pad Discontinued Medications Acetaminophen (Tylenol) 650 mg PO Q4H PRN PRN Reason: Pain (Mild 1-3) and fever Diphenhydramine HCl (Benadryl) 25 mg IVPUSH Q6H PRN PRN Reason: ITCHING Ephedrine Sulfate (Ephedrine Sulfate) Confirm Administered Dose 50 mg .ROUTE .STK-MED ONE Stop: 01/03/17 05:17 Last Admin: 01/03/17 12:05 Dose: Not Given Ephedrine Sulfate (Ephedrine Sulfate) 5 - 10 mg IVPUSH ASDIRECTED PRN PRN Reason: IF SYSTOLIC BP LESS THAN 100 Ropivacaine (Naropin 0.2%) Confirm Administered Dose 100 mls @ as directed .ROUTE .STK-MED ONE Stop: 01/03/17 04:56 Ropivacaine (Naropin 0.2%) 100 mls @ 0 mls/hr EPIDUR ASDIRECTED TOYA; Titrate PRN Reason: Protocol Mineral Oil (Muri-Lube) Confirm Administered Dose 10 ml .ROUTE .STK-MED ONE Stop: 01/03/17 08:39 Last Admin: 01/03/17 12:05 Dose: Not Given Naloxone HCl (Narcan) 0.1 mg IVPUSH Q5M PRN PRN Reason: IF RESP RATE LESS THAN 6 - Infant Interaction Disposition, : in Room with Family Interaction: Holding Infant Feeding: Breastfed Infant; Nursed Well, Encouraged to Breastfeed Support Person: Significant Other - Recovery Exam Fundal Tone: Firm Fundal Level: 2 Fingerbreadths Below Umbilicus Fundal Placement: Midline Lochia Amount: Small Lochia Color: Rubra/Red Perineum Description: Intact, Minimal Bruising/Swelling, Hemorrhoids Other Perinuem Description: Digital exam, no hematomas and repair looks great Episiotomy/Laceration: Approximated Bladder Status: Palpable Urinary Elimination: Voided - Exam General: alert, oriented HEENT: Pupils equal Neck: supple Lungs: Clear to auscultation, Normal respiratory effort Cardiovascular: Regular Rate, Regular Rhythm Abdomen: bowel sounds present, soft, no tenderness, no distension Extremities: no edema Skin: warm, dry, intact Wound/Incisions: healing well (no signs of hematoma) Neurological: no new focal deficit Psy/Mental Status: alert, normal affect, normal mood - Problem List & Annotations (1) Obstetrical laceration, second degree SNOMED Code(s): 6280554 Code(s): O70.1 - SECOND DEGREE PERINEAL LACERATION DURING DELIVERY Status: Acute Current Visit: Yes (2) Obstetrical perineal laceration with delivery SNOMED Code(s): 739800140 Code(s): O70.9 - PERINEAL LACERATION DURING DELIVERY, UNSPECIFIED Status: Acute Current Visit: Yes (3) Vaginal delivery SNOMED Code(s): 290091293 Code(s): O80 - ENCOUNTER FOR FULL-TERM UNCOMPLICATED DELIVERY Status: Acute Current Visit: Yes - Problem List Review Problem List Initiated/Reviewed/Updated: Yes - Assessment Assessment:: 01/03/17 21 yr old g1 now p1 40 2/7 with second degree tears, repaired, no complications 01/04/17 Norma is doing well Is motivated to breastfeed Has been up and about doing self cares asks staff good questions HGB 11.2 repair tender, digital exam negative for hematoma , the swelling is down tissues intact. Hemorrhoids slightly swollen, but better than yesterday 01/05/2017 Doing well Day Two Normal Vaginal Delivery Repair remains tender, minimal swelling, negative for hematoma Hemorrhoids slightly swollen but doing better going well Bleeding decreasing - Plan Plan:: 01/03/17 40 07/29 G1, active labor epidural in palce and comfortable Planning for vaginal delivery 01/03/17 routine cares sitz bath later today [facility] Support and help with 24-48 hour stay 01/04/17 Routine cares Home tomorrow Staff to work on education sitz bath today 01/05/2017 Continue Routine Cares Continue to support and encourage Discharge home today Six week visit with Nohemy
[2017-01-05] MEDS: Docusate Sodium 100 MG Cap PO SCH (09:27)
== END 2017-01-05 11:23 | disposition home or self-care (01) | DRG 560 ==
LOC: JP.OBCHECK 03:46 → JP.OB 03:51 → OBSVTOIN 09:07 → JP.OB 09:07 → JP.MS 12:17
PROVIDERS: ADMIT Nurse Practitioner Family; ATTEND Nurse Practitioner Family
PROC: 10E0XZZ Delivery of Products of Conception, External Approach (ICD-10-PCS; principal; 2017-01-03)
PROC: 3E0S3CZ (ICD-10-PCS; 2017-01-03)
PROC: 10907ZC Drainage of Amniotic Fluid, Therapeutic from Products of Conception, Via Natural or Artificial Opening (ICD-10-PCS; 2017-01-03)
DX: O70.1 Second degree perineal laceration during delivery (principal); O77.0 Labor and delivery complicated by meconium in amniotic fluid; Z87.891 Personal history of nicotine dependence; Z3A.40 40 weeks gestation of pregnancy; Z37.0 Single live birth
CPT/HCPCS: 36415; 80305; 81001; 85025; 99211; A9270-GY; J2590; J2795

== ENCOUNTER 2017-02-22 11:13 | Emergency (ER) | payer BC, MEDICAID ==
[2017-02-22 11:27] VITALS: BP 115/81
--- NOTE | 2017-02-22 12:04 | EDM.PDOC ---
ED HPI GENERAL MEDICAL PROBLEM - General Chief Complaint: ENT Problem Stated Complaint: EAR INFECTION (LT) Time Seen by Provider: 02/22/17 11:45 Source of Information: Reports: Patient History Limitations: Reports: No Limitations - History of Present Illness INITIAL COMMENTS - FREE TEXT/NARRATIVE: 21-year-old female who has had a mild to moderate cold for the last several days felt like her left ear was "plugged" yesterday and overnight developed pain. No shortness of breath or fever. She took some Tylenol this morning and it wasn't very effective Onset: Gradual (Overnight left ear pain developed) Quality: Reports: Ache, Throbbing Severity: Moderate Associated Symptoms: Reports: Other (Some mild cold symptoms, nasal congestion and scratchy throat). 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: Psychiatric History: Reports: Anxiety, Depression Social & Family History - Family History Family Medical History: Noncontributory - Tobacco Use Smoking Status *Q: Current Every Day Smoker Years of Tobacco use: 3 Packs/Tins Daily: 0.1 Used Tobacco, but Quit: Yes Month Tobacco Last Used: jun 2016 Second Hand Smoke Exposure: Yes - Caffeine Use Caffeine Use: Reports: None - Alcohol Use Days Per Week of Alcohol Use: 0 - Recreational Drug Use Recreational Drug Use: Yes Drug Use in Last 12 Months: Yes Recreational Drug Type: Reports: Marijuana/Hashish ED ROS ENT - Review of Systems Review Of Systems: See Below Constitutional: Reports: Malaise. Denies: Fever, Chills HEENT: Reports: Ear Pain, Other (Mild rhinitis) Respiratory: Denies: Shortness of Breath, Cough Cardiovascular: Denies: Chest Pain GI/Abdominal: Denies: Nausea, Vomiting Skin: Reports: No Symptoms ED EXAM, ENT - Physical Exam Exam: See Below Exam Limited By: No Limitations General Appearance: Alert, No Apparent Distress (Looks uncomfortable but not distressed) Ears: Other (Right tympanic membrane is normal, the left is reddened and bulging. She has no pain with movement of the ear helix) Nose: Normal Inspection Mouth/Throat: Normal Inspection Respiratory/Chest: No Respiratory Distress, Lungs Clear Cardiovascular: Regular Rate, Rhythm Neurological: Alert, Oriented Skin: Warm, Dry Course - Vital Signs Last Recorded V/S: Last Vital Signs Temp 95.3 F L 02/22/17 11:43 Pulse 53 L 02/22/17 11:43 Resp 14 02/22/17 11:43 BP 115/81 02/22/17 11:43 Pulse Ox 97 02/22/17 11:43 - Re-Assessments/Exams Free Text/Narrative Re-Assessment/Exam: 02/22/17 12:03 This patient has otitis media on the left side and will be treated with amoxicillin 500 mg 3 times a day for a minimum of 7 days along with ibuprofen every 6 hours. She can return if not improving in 24-48 hours. Departure - Departure Time of Disposition: 12:05 Disposition: Home, Self-Care 01 Condition: Good Clinical Impression: Otitis media Qualifiers: Otitis media type: suppurative Chronicity: acute Laterality: left Recurrence: not specified as recurrent Spontaneous tympanic membrane rupture: without spontaneous rupture Qualified Code(s): H66.002 - Acute suppurative otitis media without spontaneous rupture of ear drum, left ear - Discharge Information Instructions: Otitis Media, Adult, [id number] Referrals: PCP,None [Primary Care Provider] - Forms: ED Department Discharge Care Plan Goals: Take antibiotic 3 times a day for at least 7 days, use pain medication every 6 hours. Consider rechecking in 2-3 days if not improving satisfactorily.
== END 2017-02-22 12:05 | disposition home or self-care (01) ==
LOC: JP.ED 11:13
DX: H66.002 Acute suppurative otitis media without spontaneous rupture of ear drum, left ear (principal); F17.210 Nicotine dependence, cigarettes, uncomplicated; Z79.899 Other long term (current) drug therapy
CPT/HCPCS: 99283

== ENCOUNTER 2020-10-22 00:31 | Emergency (ER) | payer BC, MEDICAID ==
[2020-10-22 00:47] VITALS: BP 131/89; PULSE 144
--- NOTE | 2020-10-22 01:04 | EDM.PDOC ---
ED HPI GENERAL MEDICAL PROBLEM - General Chief Complaint: General Stated Complaint: POSSIBLE INFECTION ON RT THIGH Time Seen by Provider: 10/22/20 00:55 Source of Information: Reports: Patient, RN Notes Reviewed History Limitations: Reports: No Limitations - History of Present Illness INITIAL COMMENTS - FREE TEXT/NARRATIVE: 25-year-old female presents emergency department today concerned about infection she had liposuction procedure done on 09 October and she has an area on her inner thigh that is red and concerning she has no red streaks she has not had any fevers. 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: Psychiatric History: Reports: Anxiety, Depression Social & Family History - Family History Family Medical History: No Pertinent Family History - Tobacco Use Tobacco Use Status *Q: Never Tobacco User - Caffeine Use Caffeine Use: Reports: Coffee - Recreational Drug Use Recreational Drug Use: Yes Recreational Drug Type: Reports: Marijuana/Hashish ED ROS GENERAL - Review of Systems Review Of Systems: See Below Constitutional: Denies: Fever, Chills Skin: Reports: Rash ED EXAM, GENERAL - Physical Exam Exam: See Below Free Text/Narrative:: Examination of the area there is erythematous area about the size of a $0.25 piece there is a firm Esher at the center this I don't appreciate any red streaking it is not warm to the touch it is not tender to the touch Exam Limited By: No Limitations General Appearance: Alert, WD/WN, No Apparent Distress Course - Vital Signs Last Recorded V/S: Last Vital Signs Temp 96.6 F L 10/22/20 00:46 Pulse 144 H 10/22/20 00:46 Resp 16 10/22/20 00:46 BP 131/89 10/22/20 00:46 Pulse Ox 100 10/22/20 00:46 Departure - Departure Time of Disposition: 01:03 Disposition: Home, Self-Care 01 Condition: Fair Clinical Impression: Local infection of wound - Discharge Information Instructions: Wound Infection, [id number] Referrals: Solange Torres PA [Primary Care Provider] - Additional Instructions: Complete your course of cephalexin, try a triple antibiotic to the area of concern, please followup with your primary care provider in 3-5 days if not better, please call return to the emergency department with worsening of symptoms. Sepsis Event Note (ED) - Evaluation Sepsis Screening Result: No Definite Risk - Focused Exam Vital Signs: Vital Signs Temp Pulse Resp BP Pulse Ox 10/22/20 00:46 96.6 F L 144 H 16 131/89 100 - Assessment/Plan Plan: Assessment Acuity = acute Site and laterality = local cellulitis Etiology = surgical procedure Manifestations = none Location of injury = Home Lab values = none Plan She did admit to smoking cannabis prior to presentation to the emergency department she also admits she is quite anxious and concerned about this area. Recommend topical antibiotic follow-up primary care 3 to 4 days if not better This note was dictated using [employer] voice recognition software please call with any questions on syntax or grammar.
== END 2020-10-22 01:09 | disposition home or self-care (01) ==
LOC: JP.ED 00:31
DX: T81.40XA Infection following a procedure, unspecified, initial encounter (principal)
CPT/HCPCS: 99283